=== PATIENT | male | born 1990 | race Caucasian/White ===

== ENCOUNTER 2018-05-20 23:33 | Emergency (ER) | payer OTHER ==
--- NOTE | 2018-05-21 01:13 | ED ---
HPI Chest Pain - HPI Summary HPI Summary: Patient is a 28 y/o M presenting to ED with complaints of midsternal chest pain. Chest pain onset at 2230 on 05/20/18. He notes deep breaths aggravate chest pain. He is concerned that he has pericarditis. PSHx of heart surgery 10.5 years ago, aortic valve repair for aortic regurgitation. Patient had pleural effusion and pericarditis afterwards. Chest pain is still present but not as severe. He notes that he took 600 mg Advil afterward Sx onset. Patient also notes that he had a cold since two days ago with some slight cough. On triage, pain is rated 1/10. Home medications and allergies. - History of Current Complaint Chief Complaint: EDChestWallPain Time Seen by Provider: 05/21/18 01:02 Hx Obtained From: Patient Onset/Duration: Started Hours Ago - onset at 2230 05/20/18, Still Present Timing: Constant, Lasting Hours - onset at 2230 05/20/18 Initial Severity: Moderate Current Severity: Mild - 1/10 Pain Intensity: 1 Pain Scale Used: 0-10 Numeric - 1/10 Chest Pain Location: Mid Sternal Aggravating Factor(s): Deep Breaths Alleviating Factor(s): Nothing Associated Signs and Symptoms: Positive: Chest Pain, Cough, Other: - cold Sx - Allergy/Home Medications Allergies/Adverse Reactions: Allergies Allergy/AdvReac Type Severity Reaction Status Date / Time No Known Allergies Allergy Verified 08/03/15 02:46 PMH/Surg Hx/FS Hx/Imm Hx Endocrine/Hematology History: Denies: Hx Diabetes Cardiovascular History: Reports: Other Cardiovascular Problems/Disorders - Congenital Heart Defect, pericarditis Denies: Hx Congestive Heart Failure, Hx Hypertension History: Denies: Hx Renal Disease - Surgical History Surgery Procedure, Year, and Place: Valve Repair/Replacement Infectious Disease History: No Infectious Disease History: Reports: Traveled Outside the [place] in Last 30 Days - [place] - Family History Known Family History: Positive: Hypertension - Social History Alcohol Use: None Substance Use Type: Reports: None Smoking Status (MU): Never Smoked Tobacco Review of Systems Constitutional: Other - cold Sx Positive: Chest Pain Positive: Cough All Other Systems Reviewed And Are Negative: Yes Physical Exam - Summary Physical Exam Summary: VITAL SIGNS: Reviewed. GENERAL: Patient is a well-developed and nourished male who is lying comfortable in the stretcher. Patient is not in any acute respiratory distress. HEAD AND FACE: No signs of trauma. No ecchymosis, hematomas or skull depressions. No sinus tenderness. EYES: PERRLA, EOMI x 2, No injected conjunctiva, no nystagmus. EARS: Hearing grossly intact. Ear canals and tympanic membranes are within normal limits. MOUTH: Oropharynx within normal limits. NECK: Supple, trachea is midline, no adenopathy, no JVD, no carotid bruit, no c- spine tenderness, neck with full ROM. CHEST: Symmetric, no tenderness at palpation LUNGS: Clear to auscultation bilaterally. No wheezing or crackles. CVS: 2/6 systolic murmur over right sternal border. Regular rate and rhythm, S1 and S2 present, no gallops appreciated. ABDOMEN: Soft, non-tender. No signs of distention. No rebound no guarding, and no masses palpated. Bowel sounds are normal. EXTREMITIES: FROM in all major joints, no edema, no cyanosis or clubbing. NEURO: Alert and oriented x 3. No acute neurological deficits. Speech is normal and follows commands. SKIN: Dry and warm Triage Information Reviewed: Yes Vital Signs On Initial Exam: Initial Vitals Temp Pulse Resp BP Pulse Ox 97.8 F 66 16 113/76 99 05/20/18 23:39 05/20/18 23:39 05/20/18 23:39 05/20/18 23:39 05/20/18 23:39 Vital Signs Reviewed: Yes Diagnostics - Vital Signs Vital Signs Temp Pulse Resp BP Pulse Ox 05/20/18 23:39 97.8 F 66 16 113/76 99 - Laboratory Result Diagrams: 05/21/18 01:42 05/21/18 01:42 Lab Statement: Any lab studies that have been ordered have been reviewed, and results considered in the medical decision making process. - Radiology chest x-ray Radiology Interpretation Completed By: ED Physician Summary of Radiographic Findings: CXR - no acute process, pending official report. - EKG 0112 Cardiac Rate: Bradycardia - rate of 54 BPM EKG Rhythm: Sinus Bradycardia EKG Comparison: No Significant Change - no significant difference compared to previous EKG done 08/03/15. Summary of EKG Findings: EKG showed sinus bradycardia with rate of 54 BPM, J point elevation versus diffuse ST elevation, no significant difference compared to previous EKG done 08/03/15. Re-Evaluation - Re-Evaluation First Eval Re-Evaluation Time: 02:30 Comment: Patient had diffuse ST elevation in EKG, CRP is ~35, Hx of pericarditis , there is a high possibility that patient has recurrent pericarditis. Patient will be treated with motrin 800 mg TID for the next two weeks and is advised to follow up with ranch manager for echocardiogram. Patient is agreeable with this plan and discharge to home. Chest Pain Course/Dx - Course Course Of Treatment: Patient is a 28 y/o M presenting to ED with complaints of midsternal chest pain. Chest pain onset at 2230 on 05/20/18. He notes deep breaths aggravate chest pain. He is concerned that he has pericarditis. PSHx of heart surgery 10.5 years ago, aortic valve repair for aortic regurgitation. Patient had pleural effusion and pericarditis afterwards. Chest pain is still present but not as severe. He notes that he took 600 mg Advil afterward Sx onset. Patient also notes that he had a cold since two days ago with some slight cough. On physical exam, 2/6 systolic murmur over right sternal border. CXR - no acute process, pending official report. EKG showed sinus bradycardia with rate of 54 BPM, J point elevation versus diffuse ST elevation, no significant difference compared to previous EKG done 08/03/15. Labs showed RBC 4.17, Hgb 12.5, absolute monos 1, trop 0.01, CRP 34.63, total protein 6.2, globulin 1.9, TSH 2.33. Patient had diffuse ST elevation in EKG, CRP is ~35, Hx of pericarditis, there is a high possibility that patient has recurrent pericarditis. Patient will be treated with motrin 800 mg TID for the next two weeks and is advised to follow up with ranch manager for echocardiogram. Patient is agreeable with this plan and discharge to home. - Diagnoses Provider Diagnoses: Recurrent idiopathic pericarditis Discharge - Sign-Out/Discharge Documenting (check all that apply): Patient Departure - discharge Patient Received Moderate/Deep Sedation with Procedure: No - Discharge Plan Condition: Stable Disposition: HOME Prescriptions: Ibuprofen TAB* [Motrin TAB* 800 MG] 800 mg PO TID #60 tab Patient Education Materials: Chronic Pericarditis (ED) Referrals: Anali Raines NP [Primary Care Provider] - 3 Days Cody Lundberg DO [Medical Doctor] - 3 Days Additional Instructions: TAKE MOTRIN 800 MG THREE TIMES A DAY FOR TWO WEEKS. FOLLOW UP WITH YOUR PRIMARY CARE PHYSICIAN AND COMMERCIAL ACCOUNTANT FOR ECHOCARDIOGRAM WITHIN THE NEXT THREE DAYS. RETURN TO ED FOR ANY NEW OR WORSENING SYMPTOMS. - Attestation Statements Document Initiated by Scribe: Yes Documenting Scribe: GUERRERO NOLASCO Provider For Whom Tyson is Documenting (Include Credential): HEBERT DUCKWORTH MD Scribe Attestation: GUERRERO Rodriguez , scribed for HEBERT DUCKWORTH MD on 05/21/18 at 0251. Status of Scribe Document: Ready
[2018-05-21 01:49] LABS: ABS Basophils 0.1 10^3/ul (0-0.2); ABS Eosinophils 0.2 10^3/ul (0-0.6); ABS Lymphocytes 1.4 10^3/ul (1.0-4.8); ABS Neutrophils 4.8 10^3/ul (1.5-7.7); ABS Nucleated RBC 0 10^3/ul; Eosinophil % 2.6 %; Hematocrit 37 % (36-46); Hemoglobin 12.5 g/dL (14.0-18.0); Lymphocyte % 18.9 %; Mean Corpuscular HGB Conc 34 g/dL (31-36); Mean Corpuscular Hemoglobin 30 pg (27-31); Mean Corpuscular Volume 90 fL (80-94); Mean Platelet Volume 8.5 fL (7.4-10.4); Nucleated Red Blood Cells % 0.1; Platelet Count 156 10^3/uL (150-450); Red Blood Count 4.17 10^6 /uL (4.18-5.48); Red Cell Distribution Width 14 % (10.5-15); White Blood Count 7.4 10^3/uL (3.5-10.8)
[2018-05-21 01:57] LABS: Activated Partial Thrombo Time 31.5 seconds (26.0-36.3)
[2018-05-21 02:06] LABS: Albumin 4.3 g/dL (3.2-5.2); Albumin/Globulin Ratio 2.3 (1-3); BUN/Creatinine Ratio 16.3 (8-20); C Reactive Protein 34.63 mg/L (<8.01); Calcium 9.1 mg/dL (8.6-10.3); EGFR Non-African American 91.7 (>60); Globulin 1.9 g/dL (2-4); Potassium 3.8 mmol/L (3.5-5.0); Total Bilirubin 0.4 mg/dL (0.2-1.0); Total Protein 6.2 g/dL (6.4-8.9)
[2018-05-21 02:08] LABS: Troponin I 0.01 ng/mL (<0.04)
[2018-05-21 02:26] LABS: TSH (Thyroid Stimulating Horm) 2.33 mcIU/mL (0.34-5.60)
[2018-05-21 02:59] LABS: Erythrocyte Sed Rate 7 mm/Hr (0-14)
[2018-05-21 03:10] VITALS: BP 102/51
== END 2018-05-21 03:09 | disposition home or self-care (01) ==
LOC: ED 23:33
DX: I30.0 Acute nonspecific idiopathic pericarditis (principal); R07.9 Chest pain, unspecified; R05 Cough; Z86.79 Personal history of other diseases of the circulatory system
CPT/HCPCS: 36415; 71045; 80053; 84443; 84484; 85025; 85610; 85652; 85730; 86140; 93005; 99282